=== PATIENT | female | born 1960 | race Caucasian/White ===

== ENCOUNTER 2022-10-06 12:38 | Outpatient (CLI) | payer OTHER, SELFPAY | END 2022-10-06 12:39 | disposition home or self-care (01) | LOC: LKVREF 10-08 09:25 | PROVIDERS: PCP Emergency Medicine; Visit Provider Nurse Practitioner Family | DX: R30.0 Dysuria (principal); N30.90 Cystitis, unspecified without hematuria; B96.89 Other specified bacterial agents as the cause of diseases classified elsewhere | CPT/HCPCS: 87086; 87186 ==

== ENCOUNTER 2023-10-04 18:47 | Emergency (ER) | payer OTHER, SELFPAY ==
[2023-10-04 19:02] VITALS: BP 148/80; PULSE 86; RESP 16; TEMP 36.4; O2SAT 98
--- NOTE | 2023-10-04 19:44 | ED.GENADULT ---
HPI - General Adult General Chief complaint: Unspecified Complaint, Adult Stated complaint: Suspected shingles Time Seen by Provider: 10/04/23 19:14 History of Present Illness HPI narrative: Patient is a 63-year-old female presenting to emergency department for concern for shingles. She state for the past 4 days she has noticed a rash in her and her year breast pain going up the side of her head and this is and then noticed a spot on her left eye lid. She initially thought it was eczema on was using her cream but she says has not been acting like her eczema in is more painful than he typically. She has had shingles in the past in is concerned could be shingles again. She does state she did has some eye discomfort and watering sensation to the eye. Denies any hearing issues her ear pain. No other concerns at this time. Related Data Home Medications Medication Instructions Recorded Confirmed melatonin 5 mg tablet 5 - 15 mg PO QHS 10/01/22 03/02/23 oxybutynin chloride 5 mg 5 mg PO QDAY 10/01/22 03/02/23 tablet,extended release 24 hr Previous Rx's Medication Instructions Recorded acyclovir 800 mg tablet 800 mg PO 5XD 7 days #35 tabs 10/04/23 Allergies Allergy/AdvReac Type Severity Reaction Status Date / Time aspirin Allergy Severe Anaphylaxis Verified 03/02/23 16:39 ibuprofen Allergy Severe Anaphylaxis Verified 03/02/23 16:39 povidone-iodine Allergy Severe Rash Verified 03/02/23 16:39 [From Betadine] tetracycline Allergy Severe Rash Verified 03/02/23 16:39 Sulfa (Sulfonamide Allergy Rash Verified 03/02/23 16:39 Antibiotics) Review of Systems Status of ROS: Reports: 10 or more systems reviewed and unremarkable except as noted in History and below [facility] Medical History Encounter for postoperative care ?Z48.89 - Encounter for other specified surgical aftercare (ICD-10) Encounter for follow-up ?Z09 - Encounter for follow-up examination after completed treatment for conditions other than malignant neoplasm (ICD-10) Surgical History Status post tonsillectomy and adenoidectomy ?Z90.89 - Acquired absence of other organs (ICD-10) Status post medial meniscus repair ?Z98.890 - Other specified postprocedural states (ICD-10) History of section ?Z98.891 - History of uterine scar from previous surgery (ICD-10) History of appendectomy ?Z90.49 - Acquired absence of other specified parts of digestive tract (ICD-10) Social History Smoking Status: Never smoker Exam Narrative: Exam Narrative: Const: Well-nourished, Well-developed, in no distress Eyes: PERRL, no conjunctival injection, and symmetrical lids HENT: Atraumatic external nose and ears. Moist mucous membranes. Neck: Symmetric, trachea midline, No thyromegaly. CVS: RRR, No murmurs or gallops. Peripheral pulses 2+ and equal in all extremities RESP: Unlabored respiratory effort. Clear to auscultation bilaterally. GI: Nontender/Nondistended, No rebound or guarding. MSK:Extremities w/o deformity, Normal Active ROM Skin: Warm, Dry. Scaly and maculopapular rash behind left ear that appears to be forming a dermatome but there is also a spot on her right eyelid Neuro: Normal Muscle tone, No focal neurological deficits. Psych: Awake, Alert, & Oriented x3. Appropriate mood and affect. Const: Vital Signs, click to edit/add: Vital Signs - 24 hr 10/04/23 19:02 Temperature 97.6 F Pulse Rate [Left P ulse Oximeter] 86 Respiratory Rate 16 Blood Pressure [Ri ght Upper Arm] 148/80 H Pulse Oximetry 98 Oxygen Delivery Me thod Room Air Course Vital Signs Vital signs: Initial Vital Signs Temperature 97.6 F 10/04/23 19:02 Temperature Source Temporal Artery Scan 10/04/23 19:02 Pulse Rate 86 10/04/23 19:02 Pulse Rhythm Regular 10/04/23 19:02 Respiratory Rate 16 10/04/23 19:02 Blood Pressure 148/80 H 10/04/23 19:02 Blood Pressure Mean 102 10/04/23 19:02 Blood Pressure Position Sitting 10/04/23 19:02 Pulse Oximetry 98 10/04/23 19:02 Oxygen Delivery Method Room Air 10/04/23 19:02 Vital Signs Temperature 97.6 F 10/04/23 19:02 Pulse Rate 86 10/04/23 19:02 Respiratory Rate 16 10/04/23 19:02 Blood Pressure 148/80 H 10/04/23 19:02 Pulse Oximetry 98 10/04/23 19:02 Oxygen Delivery Method Room Air 10/04/23 19:02 Temperature 97.6 F 10/04/23 19:02 Pulse Rate 86 10/04/23 19:02 Respiratory Rate 16 10/04/23 19:02 Blood Pressure 148/80 H 10/04/23 19:02 Pulse Oximetry 98 10/04/23 19:02 Oxygen Delivery Method Room Air 10/04/23 19:02 Medications Administered Medications: Generic Name Dose Route Start Last Admin Trade Name Freq PRN Reason Stop Dose Admin Fluorescein Sodium 1 strip 10/04/23 19:56 10/04/23 19:58 Fluorescein Sodium Topical Strip EYE-LEFT 10/04/23 19:57 1 strip ONCE ONE Administration Tetracaine HCl 1 drop 10/04/23 19:56 10/04/23 19:58 Tetracaine 0.5% Ophth EYE-LEFT 10/04/23 19:57 1 drop ONCE ONE Administration Medical Decision Making MDM Narrative Medical decision making narrative: Patient is a 63-year-old female presenting to the emergency department in for concern for shingles. She initially thought it was eczema but is not acting like her normal eczema. What does appear to be following a dermatome behind her left ear there is 1 spot on her left eyelid/eyebrow that would not be the same dermatome and I cannot say if this is the same rash or an unrelated finding. Considering how close it is to her ear and eye exam and both thoroughly. Did not see any signs of [place] Schwartz syndrome or herpes zoster ophthalmicus. She is otherwise doing well. While I do not know for certain that this is shingles as they are not currently any vesicles I will treat her for shingles. I have had patients in the past for the vesicles have showed up later on in the disease course. She is agreeable with this plan. Discharge Plan Discharge Clinical Impression: Shingles Patient Disposition: Home, Self-Care Condition: Stable Instructions: Shingles (ED) Additional Instructions: Take the acyclovir as directed. His return to emergency department for new worsening symptoms. While is typically not contagious unless you are having open vesicles I do recommend staying away patients until symptoms resolve as it can cause defects. Prescriptions: New acyclovir 800 mg tablet 800 mg PO 5XD 7 Days Qty: 35 0RF Rx Instructions: space evenly during waking hours No Action oxybutynin chloride 5 mg tablet extended release 24hr 5 mg PO QDAY Patient Comments: TAKE 1 TABLET BY MOUTH EVERY DAY melatonin 5 mg tablet 5 - 15 mg PO QHS Follow Up/Referrals: Adriana Cesar MD [Primary Care Provider] - Stand Alone Forms: MyHealth Info Instructions
[2023-10-04] MEDS: TETRACAINE 0.5% OPHTH 1 DROP EYE-LEFT (19:58)
[2023-10-04] MEDS: FLUORESCEIN SODIUM TOPICAL STRIP 1 STRIP EYE-LEFT (19:58)
== END 2023-10-04 20:21 | disposition home or self-care (01) ==
PROVIDERS: Emergency Provider Student in an Organized Health Care Education/Training Program; PCP Emergency Medicine
DX: B02.9 Zoster without complications (principal)
CPT/HCPCS: 99283; A9270

== ENCOUNTER 2024-04-23 10:20 | Outpatient (CLI) | payer OTHER, SELFPAY | END 2024-04-23 10:21 | disposition home or self-care (01) | LOC: NFLDREF 23:35 | PROVIDERS: PCP Emergency Medicine; Referring Provider Emergency Medicine; Visit Provider Family Medicine | DX: N39.0 Urinary tract infection, site not specified (principal) | CPT/HCPCS: 87086 ==

== ENCOUNTER 2024-06-10 10:59 | Outpatient (CLI) | payer OTHER, SELFPAY | END 2024-06-10 11:00 | disposition home or self-care (01) | LOC: NFLDREF 06-11 09:46 | PROVIDERS: Visit Provider Family Medicine | DX: R82.90 Unspecified abnormal findings in urine (principal) | CPT/HCPCS: 87086 ==